=== PATIENT | male | born 1995 | race American Indian/Alaskan Native ===

== ENCOUNTER 2020-04-07 11:16 | Emergency (ER) | payer SELFPAY ==
--- NOTE | 2020-04-07 12:20 | XRay Report ---
RIGHT WRIST 3 VIEWS INDICATION: FELL/ OBVIOUS DEFORMITY. COMPARISON: None. IMPRESSION: Comminuted mildly displaced fracture of the distal radius with extension to the radiocar pal joint is identified. A nondisplaced transverse fracture at the base of the ulnar styloid is also identified. The carpal bones are grossly intact. There is diffuse soft tissue swelling. Signer Name: Rajinder Cabrera Jr, MD Signed: 04/07/2020 12:15 PM Workstation Name: [id number]
[2020-04-07] MEDS ORDERED: HYDROcodone/ACETAMINOPHEN 5-325 MG TAB PO ONE (13:34)
--- NOTE | 2020-04-07 13:36 | Emergency Department Report ---
Upper Extremity - HPI Chief Complaint: Extremity Injury, Upper Stated Complaint: RT HANDS AND WRIST PAIN Time Seen by Provider: 04/07/20 13:34 Other History: Patient is a 24-year-old male presents emergency room with complaints of a right wrist injury that occurred last night. He states that he accidentally slipped and fell while playing around and landed on a outstretched right hand. He denies ever injuring the past. He has associated pain and swelling and pain with movement. He denies any numbness or weakness. No past medical history. No allergies medications. He did not drive to the emergency department today. ED Review of Systems ROS: Stated complaint: RT HANDS AND WRIST PAIN Other details as noted in HPI Comment: All other systems reviewed and negative ED Past Medical Hx - Past Medical History Previous Medical History?: No - Surgical History Past Surgical History?: No - Medications Home Medications: Home Medications Medication Instructions Recorded Confirmed Last Taken Type Acetaminophen/Codeine [Tylenol 1 tab PO Q8HR PRN #12 tab 04/07/20 Unknown Rx /Codeine # 3 tab] Ibuprofen [Motrin 600 MG tab] 600 mg PO Q8H PRN #20 tablet 04/07/20 Unknown Rx Upper Extremity Exam - Exam General: Vital signs noted. No distress. Alert and acting appropriately. Shoulder Exam: Yes Normal Range of Motion in Shoulder, No Shoulder Tenderness, No Clavicle Tenderness, No Shoulder Deformity, No AC Joint Tenderness Arm Exam: No Arm/Humerus Tenderness, No Arm Deformity Elbow: Yes Normal Range of Motion in Elbow, No Elbow Tenderness, No Elbow Deformity Wrist: Yes Wrist Tenderness (right wrist ttp with edema), No Normal ROM in Wrist (decreased ROM secondary to pain), No Snuffbox Tenderness, No Pain with Axial Thumb Compression Hand: Yes Normal ROM in Digit(s), No Hand Tenderness, No Hand Deformity, No Di git Tenderness, No Digit(s) Deformity, No Tendon Dysfunction CMS Exam: Yes Normal Distal Pulses, Yes Normal Capillary Refill, Yes Normal Distal Sensation, No Broken Skin ED Medical Decision Making - Radiology Data Radiology results: report reviewed, image reviewed Ordering Physician: LINDA NEGRETE MD Date of Service: 04/07/20 Procedure(s): XR wrist 3+V RT Accession Number(s): [id number] cc: LINDA NEGRETE MD Fluoro Time In Minutes: RIGHT WRIST 3 VIEWS INDICATION: FELL/ OBVIOUS DEFORMITY. COMPARISON: None. IMPRESSION: Comminuted mildly displaced fracture of the distal radius with extension to the radiocarpal joint is identified. A nondisplaced transverse fracture at the base of the ulnar styloid is also identified. The carpal bones are grossly intact. There is diffuse soft tissue swelling. Signer Name: Rajinder Cabrera Jr, MD Signed: 04/07/2020 12:15 PM Workstation Name: [id number] Transcribed By: TTR Dictated By: RAJINDER CABRERA JR, MD Electronically Authenticated By: RAJINDER CABRERA JR, MD Signed Date/Time: 04/07/201214 DD/ 13 TD/TT: - Medical Decision Making Patient is a 24-year-old male presents emergency room with complaints of a right wrist injury that occurred last night. He states that he accidentally slipped and fell while playing around and landed on a outstretched right hand. He denies ever injuring the past. He has associated pain and swelling and pain with movement. He denies any numbness or weakness. No past medical history. No allergies medications. He did not drive to the emergency department today. vitals written on patients chart are stable, advised nurse to please enter in computer. on exam: There is tenderness palpation with edema present to the right wrist, decreased range of motion secondary to pain, neurovascularly intact. XR right wrist: IMPRESSION: Comminuted mildly displaced fracture of the distal radius with extension to the radiocarpal joint is identified. A nondisplaced transverse fracture at the base of the ulnar styloid is also identified. The carpal bones are grossly intact. There is diffuse soft tissue swelling. Discussed case with Dr. Peter, ER attending who advised to have nurse place sugar tong splint and pull a small amount of traction while placing splint. Splint placed by nurse and patient remained neurovascularly intact and given a sling. Discussed the importance of orthopedic follow-up with patient. Given prescription for ibuprofen and Tylenol with codeine. Advised patient Please take medication as prescribed as needed. Please do not remove splint. Please follow-up with orthopedic doctor. It is very important that you follow-up. Return to emergency room for any new or worsening symptoms. - Differential Diagnosis Strain, sprain, fracture, dislocation, contusion, tendinitis Critical care attestation.: If time is entered above; I have spent that time in minutes in the direct care of this critically ill patient, excluding procedure time. ED Disposition Clinical Impression: Distal radius fracture Qualifiers: Encounter type: initial encounter Fracture type: closed Fracture morphology: torus Laterality: right Qualified Code(s): S52.521A - Torus fracture of lower end of right radius, initial encounter for closed fracture Ulna distal fracture Qualifiers: Encounter type: initial encounter Fracture type: closed Fracture morphology: unspecified fracture morphology Laterality: right Qualified Code(s): S52.601A - Unspecified fracture of lower end of right ulna, initial encounter for closed fracture Disposition: DC-01 TO HOME OR SELFCARE Is pt being admited?: No Does the pt Need Aspirin: No Condition: Stable Instructions: Radial Fracture, Ulnar Fracture Additional Instructions: Please take medication as prescribed as needed. Please do not remove splint. Please follow-up with orthopedic doctor. It is very important that you follow- up. Return to emergency room for any new or worsening symptoms. Prescriptions: Ibuprofen [Motrin 600 MG tab] 600 mg PO Q8H PRN #20 tablet PRN Reason: Pain Acetaminophen/Codeine [Tylenol /Codeine # 3 tab] 1 tab PO Q8HR PRN #12 tab PRN Reason: Pain , Severe (7-10) Referrals: PRIMARY CARE, [Primary Care Provider] - 2-3 Days ANA SAAVEDRA MD [Staff Physician] - 2-3 Days [facility]] - 2-3 Days Forms: Work/School Release Form(ED) Time of Disposition: 14:58 Print Language: THAI
== END 2020-04-07 15:26 | disposition home or self-care (01) ==
LOC: ED 11:16
DX: S52.521A Torus fracture of lower end of right radius, initial encounter for closed fracture (principal); S52.601A Unspecified fracture of lower end of right ulna, initial encounter for closed fracture; Z79.899 Other long term (current) drug therapy; W01.0XXA Fall on same level from slipping, tripping and stumbling without subsequent striking against object, initial encounter; Y93.89 Activity, other specified; Y92.89 Other specified places as the place of occurrence of the external cause; Y99.8 Other external cause status
CPT/HCPCS: 99283